=== PATIENT | female | born 1945 | race Caucasian/White ===

== ENCOUNTER 2016-05-07 20:52 | Emergency (ER) | payer MEDICARE, OTHER ==
[~2016-05-07] VITALS: Ht 157.5 cm; Wt 63.6 kg
[~2016-05-07 20:52] MED LIST: ARIP10TA14 PO; DOCU250C91 PO; LITH300C3 PO; OXYB5 PO; PANT40TA25 PO; ZOLP5 PO
[2016-05-07] MEDS ORDERED: PHENAZOPYRIDINE HCL 100 MG TABLET PO ONE (23:00)
[2016-05-07 23:21] VITALS: BP 102/64
== END 2016-05-07 23:26 | disposition home or self-care (01) ==
LOC: EMS 20:57 → EEVIPCON 20:57 → EMS 23:26
DX: N39.0 Urinary tract infection, site not specified (principal); K21.9 Gastro-esophageal reflux disease without esophagitis; I10 Essential (primary) hypertension; J44.9 Chronic obstructive pulmonary disease, unspecified; F31.9 Bipolar disorder, unspecified; F20.9 Schizophrenia, unspecified; Z88.8 Allergy status to other drugs, medicaments and biological substances; Z91.011 Allergy to milk products; Z91.018 Allergy to other foods; Z91.010 Allergy to peanuts; Z91.013 Allergy to seafood
CPT/HCPCS: 99285

== ENCOUNTER 2016-05-09 01:10 | Emergency (ER) | payer MEDICARE, OTHER ==
[~2016-05-09] VITALS: Ht 149.9 cm; Wt 60.0 kg
[2016-05-09] MEDS ORDERED: KETOROLAC TROMETHAMINE 30 MG/ML VIAL IM ONE (02:00)
[2016-05-09] MEDS ORDERED: LORazepam 2 MG/ML VIAL IM ONE (02:00)
[2016-05-09 02:30] VITALS: BP 118/78
== END 2016-05-09 03:17 | disposition home or self-care (01) ==
LOC: EMS 01:12
DX: G47.62 Sleep related leg cramps (principal); F41.9 Anxiety disorder, unspecified; F31.9 Bipolar disorder, unspecified; J44.9 Chronic obstructive pulmonary disease, unspecified; K21.9 Gastro-esophageal reflux disease without esophagitis; I10 Essential (primary) hypertension; F20.9 Schizophrenia, unspecified; Z91.011 Allergy to milk products; Z91.010 Allergy to peanuts; Z91.013 Allergy to seafood; Z88.8 Allergy status to other drugs, medicaments and biological substances; Z91.018 Allergy to other foods
CPT/HCPCS: 96372; 99284; J1885; J2060

== ENCOUNTER 2016-06-27 01:33 | Emergency (ER) | payer MEDICARE, OTHER ==
[~2016-06-27] VITALS: Ht 149.9 cm; Wt 50.0 kg
[2016-06-27] MEDS ORDERED: TRAM50TA4 PO (01:55)
[2016-06-27] MEDS ORDERED: MULT1CAP32 PO (01:55)
[2016-06-27] MEDS ORDERED: CEPH500 PO (01:55)
[2016-06-27] MEDS ORDERED: DIPH50 PO (01:55)
[2016-06-27 01:56] VITALS: BP 131/81
[2016-06-27] MEDS ORDERED: KETOROLAC TROMETHAMINE 30 MG/ML VIAL IM ONE (02:00)
== END 2016-06-27 02:45 | disposition home or self-care (01) ==
LOC: EMS 01:35
DX: M79.606 Pain in leg, unspecified (principal); G89.29 Other chronic pain; F31.9 Bipolar disorder, unspecified; F20.9 Schizophrenia, unspecified; I10 Essential (primary) hypertension; J44.9 Chronic obstructive pulmonary disease, unspecified; K21.9 Gastro-esophageal reflux disease without esophagitis; Z88.8 Allergy status to other drugs, medicaments and biological substances; Z91.011 Allergy to milk products; Z91.018 Allergy to other foods; Z91.010 Allergy to peanuts; Z91.013 Allergy to seafood
CPT/HCPCS: 96372; 99283; J1885

== ENCOUNTER 2016-07-02 13:40 | Emergency (ER) | payer MEDICARE, OTHER ==
[~2016-07-02] VITALS: Ht 149.9 cm; Wt 47.3 kg
[~2016-07-02 13:40] MED LIST changes: -ARIP10TA14 PO; +CEPH500 PO; +DIPH50 PO; -DOCU250C91 PO; +MULT1CAP32 PO; -PANT40TA25 PO; +TRAM50TA4 PO; -ZOLP5 PO
[2016-07-02] MEDS ORDERED: LORazepam 2 MG/ML VIAL IM ONE (14:15)
[2016-07-02] MEDS ORDERED: LORazepam 2 MG/ML VIAL ONE (14:15)
[2016-07-02 15:06] LABS: BASOPHILS % (AUTO) 0.3 % (0.0-2.0); EOSINOPHILS % (AUTO) 3.7 % (1.0-6.0); HEMATOCRIT 34.3 % (36-46); HEMOGLOBIN 11.2 g/dL (12.0-16.0); LYMPHOCYTES # (AUTO) 1.1 K/uL (1.0-4.8); LYMPHOCYTES % (AUTO) 19.1 % (22.0-44.0); MEAN CORPUSCULAR HEMOGLOBIN 30.7 pg (26.0-34.0); MEAN CORPUSCULAR HGB CONC 32.6 G/dL (31.0-37.0); MEAN CORPUSCULAR VOLUME 94 fL (80-100); MONOCYTES # (AUTO) 0.4 K/uL (0.1-1.0); MONOCYTES % (AUTO) 7.5 % (2.0-9.0); NEUTROPHILS # (AUTO) 3.8 K/uL (1.8-7.7); NEUTROPHILS % (AUTO) 69.4 % (40.0-70.0); PLATELET COUNT (AUTO) 209 K/uL (150-450); RED BLOOD CELL COUNT(AUTO) 3.64 MIL/uL (4.00-5.20); RED CELL DISTRIBUTION WIDTH 14.4 % (11.5-14.5); WHITE BLOOD COUNT (AUTO) 5.5 K/uL (4.5-11.0)
[2016-07-02 15:24] LABS: LITHIUM 0.51 mmol/L (0.60-1.20)
[2016-07-02] MEDS ORDERED: DiphenhydrAMINE HCL 50 MG/ML VIAL IM ONE (15:30)
[2016-07-02 15:50] LABS: ANION GAP 13 mmol/L (8-16); CALCIUM, TOTAL 8.9 mg/dL (8.8-10.5); CARBON DIOXIDE 23 mmol/L (22-29); CHLORIDE 104 mmol/L (98-107); CREATININE 0.78 mg/dL (0.60-1.30); GLOMERULAR FILTR. RATE CALC > 60 mL/min (>60); SODIUM SERUM 140 mmol/L (136-145); UREA NITROGEN, BLOOD 15 mg/dL (7-18)
[2016-07-02 16:29] LABS: ALANINE AMINOTRANSFERASE 20 U/L (12-78); ALBUMIN 3.3 g/dL (3.4-5.0); ASPARTATE AMINOTRANSFERASE 10 U/L (15-37); BILIRUBIN,TOTAL 0.2 mg/dL (0.1-1.0); TOTAL PROTEIN, SERUM 6.6 g/dL (6.4-8.2)
[2016-07-02] MEDS ORDERED: POTASSIUM CHLORIDE 20 MEQ ER TABLET PO ONE (17:00)
[2016-07-02 18:10] VITALS: BP 110/68
== END 2016-07-02 18:38 | disposition home or self-care (01) ==
LOC: EMS 13:42
DX: M62.838 Other muscle spasm (principal); J44.9 Chronic obstructive pulmonary disease, unspecified; K21.9 Gastro-esophageal reflux disease without esophagitis; I10 Essential (primary) hypertension; Z91.011 Allergy to milk products; Z91.018 Allergy to other foods; Z91.010 Allergy to peanuts; Z91.013 Allergy to seafood; Z88.8 Allergy status to other drugs, medicaments and biological substances
CPT/HCPCS: 36415; 80053; 80178; 85025; 96372; 99284; J1200; J2060